=== PATIENT | male | born 1950 | race Caucasian/White ===

== ENCOUNTER 2017-06-07 08:29 | Outpatient (CLI) | payer OTHER ==
[2017-06-07] MEDS ORDERED: ISOVUE-370 76%-LOCM 1 ML ONE (13:35)
== END 2017-06-07 08:30 | disposition home or self-care (01) ==
LOC: BICCT 08:29
PROVIDERS: ATTEND Urology
DX: R31.0 Gross hematuria (principal); N40.0 Benign prostatic hyperplasia without lower urinary tract symptoms
CPT/HCPCS: 74178

== ENCOUNTER 2017-08-10 11:22 | Outpatient (CLI) | payer OTHER ==
[2017-08-10 12:17] LABS: Mean Corpuscular HGB CONC 33.7 g/dL (32.0-36.0); Mean Corpuscular Hemoglobin 30.9 pg (27.0-31.0); Mean Corpuscular Volume 91.7 fl (80.0-94.0); Mean Platelet Volume 6.7 fL (7.4-10.4); Platelet Count 291 thou/uL (130-400); RBC Distribution Width 11.9 % (11.5-14.5); Red Blood Cell (RBC) Count 4.86 mill/uL (4.70-6.10); White Blood Cell (WBC) Count 8.6 thou/uL (4.8-10.8)
[2017-08-10 12:30] LABS: Anion Gap 12 mmol/L (10-20); BUN (Urea Nitrogen) 15 mg/dL (8.4-25.7); Calc. Creatinine Clearance 0 mL/min (70-130); Calcium 9.3 mg/dL (7.8-10.44); Carbon Dioxide 23 mmol/L (23-31); Chloride 108 mmol/L (98-107); Estimated GFR-MDRD 88; Glucose 95 mg/dL (80-115); Potassium 4.1 mmol/L (3.5-5.1); Sodium 139 mmol/L (136-145)
--- NOTE | 2017-08-10 16:24 | EKG ---
Test Reason : Blood Pressure : / mmHG Vent. Rate : 066 BPM Atrial Rate : 066 BPM P-R Int : 172 ms QRS Dur : 086 ms QT Int : 396 ms P-R-T Axes : 033 068 042 degrees QTc Int : 415 ms Normal sinus rhythm Possible Left atrial enlargement Borderline ECG No previous ECGs available Confirmed by MICHELL STOVALL ([id number]) on 08/10/2017 4:24:02 PM Referred By: WILSON Confirmed By:MICHELL STOVALL
== END 2017-08-10 11:23 | disposition home or self-care (01) ==
LOC: LABBT 11:22
PROVIDERS: ATTEND Urology
DX: Z01.818 Encounter for other preprocedural examination (principal); N40.0 Benign prostatic hyperplasia without lower urinary tract symptoms; L91.8 Other hypertrophic disorders of the skin
CPT/HCPCS: 80048; 85027; 93005; 93010

== ENCOUNTER 2017-08-16 08:08 | Day surgery (SDC) | payer OTHER ==
[2017-08-10 11:13] VITALS: BMI 24.6
[2017-08-16] MEDS ORDERED: Dexamethasone 4 mg/ml Vial ONE (08:40)
[2017-08-16] MEDS ORDERED: Levofloxacin 500 mg/D5W 100 ml Premix Bag ONE (08:40)
[2017-08-16] MEDS ORDERED: Furosemide 20 MG/2 ML VIAL ONE ×2 (09:44→11:39)
[2017-08-16] MEDS ORDERED: Bacitracin Zinc Ointment 30 gm TUBE ONE (09:44)
[2017-08-16] MEDS ORDERED: B & O ONE (09:44)
[2017-08-16] MEDS ORDERED: Fentanyl 100 MCG/2 ML VIAL ONE ×2 (09:49→12:26)
[2017-08-16] MEDS ORDERED: Midazolam HCl 2 mg/2 ml Vial ONE (09:49)
[2017-08-16] MEDS ORDERED: Furosemide 40 MG/4 ML VIAL ONE (11:39)
--- NOTE | 2017-08-16 13:26 | OP ---
DATE OF PROCEDURE: 08/16/2017 PREOPERATIVE DIAGNOSES: Benign prostatic hypertrophy and skin tag. POSTOPERATIVE DIAGNOSES: Benign prostatic hypertrophy and skin tag. PROCEDURES: GreenLight laser vaporization of the prostate with enucleation of the middle lobe and skin tag removal. [id number] used SURGEON: Ramona Gonzalez M.D. ANESTHESIA: General with endotracheal tube. ESTIMATED BLOOD LOSS: Less than 50 mL. COMPLICATIONS: None. DRAIN: 20F silicone catheter FINDINGS: Adequate resection of prostate with good stream noted at the end; however, there was one right-sided vein that was oozing at low pressure and therefore traction was used at the end of the case, but a good stream had been noted when the scope had been removed. INDICATIONS: The patient is a 67-year-old male, who was following up for BPH and elected to undergo definitive surgical therapy. DESCRIPTION OF THE PROCEDURE: The patient was brought into the room by Anesthesia and laid on table in supine position. After receiving general anesthetic, his legs were placed in lithotomy position and his perineum was prepped and draped in sterile fashion. The patient was placed in lithotomy position and then the area of the skin tag was prepped with alcohol and lidocaine 5 mL 0.5% was used for numbing and then cutting on the cautery device was used to excise the skin tag and coagulation was used for hemostasis and then the perineum was prepped and draped in sterile fashion for the GreenLight laser procedure. Using a 22-German cystoscope and a 30-degree lens, the urethra was traversed. There was a small or a slight stricture noted that the camera passed into in the bulbar urethra and then the bladder was inspected. There was a small diverticulum noted on the right. The ureteral orifices were identified and preserved throughout the case and a power level of 80 was used at the bladder neck and the veru and a power level of 180 for the mid gland. Initially, the middle lobe was taken down and enucleated to the bladder floor and then the trigonal ridge was taken down to the floor as well. A total of [id number] joules were used. A grasper was needed to remove the larger chips. When the scope was removed, a good stream was noted. Scope was put back in. All chips were ensured to be out. When the bladder was decompressed/at a low volume, it was noted that there was bleeding at the right lateral portion. Attempts at vaporizing around this area and coagulation were not fully successful when the bladder was fully decompressed. So, at this point, I removed the scope, put a silicone 20-German catheter in and then blew the balloon up larger than normal and held pressure for approximately 5 minutes. Then, I reduced the balloon size and kept it on traction for approximately 15 minutes in the PACU area. Other than the venous bleeding, the patient tolerated the procedure well and there were no complications. He was awakened and transferred to the PACU in stable condition. OLEG
[2017-08-16] MEDS ORDERED: ePHEDrine/0.9% NaCl/PF SYRINGE 50 mg/10 ml ONE (16:12)
[2017-08-16] MEDS ORDERED: Lidocaine 1% PF 5 ML VIAL ONE (16:12)
[2017-08-16] MEDS ORDERED: Dexamethasone 20 MG/5 ML VIAL ONE (16:12)
[2017-08-16] MEDS ORDERED: Glycopyrrolate 0.2 MG/ML 5 ML SYRINGE ONE (16:12)
[2017-08-16] MEDS ORDERED: PROPOFOL 200 MG/20 ML VIAL ONE (16:12)
== END 2017-08-16 14:15 | disposition home or self-care (01) ==
LOC: SDC 08:08
PROVIDERS: ATTEND Urology
PROC: 0VB08ZZ Excision of Prostate, Via Natural or Artificial Opening Endoscopic (ICD-10-PCS; principal; 2017-08-16)
PROC: 0HB9XZZ Excision of Perineum Skin, External Approach (ICD-10-PCS; principal; 2017-08-16)
DX: N40.1 Benign prostatic hyperplasia with lower urinary tract symptoms (principal); R35.0 Frequency of micturition; R39.11 Hesitancy of micturition; R39.14 Feeling of incomplete bladder emptying; R39.12 Poor urinary stream; L91.8 Other hypertrophic disorders of the skin; E78.5 Hyperlipidemia, unspecified; H81.01 Meniere's disease, right ear; N52.9 Male erectile dysfunction, unspecified; Z79.82 Long term (current) use of aspirin; Z79.899 Other long term (current) drug therapy; Z91.040 Latex allergy status
CPT/HCPCS: 88305; 96374; J1100; J1940; J1956; J2001; J2250; J2704; J3010

== ENCOUNTER 2018-01-02 08:20 | Outpatient (CLI) | payer OTHER ==
[2018-01-02 09:09] LABS: #Basophils 0.1 thou/uL (0.0-0.2); #Eosinphils 0.1 thou/uL (0.0-0.7); #Lymphocytes 1.5 thou/uL (1.20-3.40); #Monocytes 0.3 thou/uL (0.11-0.59); #Neutrophils 3.7 thou/uL (1.40-6.50); %Basophils 1.1 % (0.0-1.0); %Eosinophils 1.6 % (0.0-10.0); %Lymphocytes 27.1 % (21.0-51.0); %Monocytes 4.6 % (0.0-10.0); %Neutrophils 65.6 % (42.0-75.0); Hemoglobin 14.7 g/dL (14.0-18.0); Mean Corpuscular HGB CONC 32.7 g/dL (32.0-36.0); Mean Corpuscular Hemoglobin 30.2 pg (27.0-31.0); Mean Corpuscular Volume 92.3 fL (78.0-98.0); Mean Platelet Volume 6.4 fL (7.4-10.4); Platelet Count 288 thou/uL (130-400); Red Blood Cell (RBC) Count 4.88 mill/uL (4.70-6.10); White Blood Cell (WBC) Count 5.6 thou/uL (4.8-10.8)
[2018-01-02 09:53] LABS: ALT (SGPT) 16 U/L (8-55); AST (SGOT) 21 U/L (5-34); Albumin 4.4 g/dL (3.4-4.8); Alkaline Phosphatase 82 U/L (40-150); Anion Gap 15 mmol/L (10-20); BUN (Urea Nitrogen) 16 mg/dL (8.4-25.7); Bilirubin, Total 0.7 mg/dL (0.2-1.2); Calc. Creatinine Clearance 0 mL/min (70-130); Calcium 9.4 mg/dL (7.8-10.44); Carbon Dioxide 23 mmol/L (23-31); Chloride 108 mmol/L (98-107); Estimated GFR-MDRD Greater than 90; Glucose 94 mg/dL (80-115); Protein, Total 6.4 g/dL (5.8-8.1); Sodium 142 mmol/L (136-145)
--- NOTE | 2018-01-08 14:24 | EKG ---
Test Reason : Blood Pressure : / mmHG Vent. Rate : 070 BPM Atrial Rate : 070 BPM P-R Int : 180 ms QRS Dur : 086 ms QT Int : 372 ms P-R-T Axes : 044 007 065 degrees QTc Int : 401 ms Sinus rhythm with occasional Premature ventricular complexes Possible Left atrial enlargement Nonspecific ST abnormality Abnormal ECG When compared with ECG of 10-AUG-2017 11:49, Premature ventricular complexes are now Present Questionable change in QRS axis Confirmed by DANIS VALENTE ([id number]) on 01/08/2018 2:24:36 PM Referred By: IRINA Confirmed By:DANIS VALENTE
== END 2018-01-02 08:21 | disposition home or self-care (01) ==
LOC: LABBT 08:20
PROVIDERS: ATTEND Surgery
DX: Z01.818 Encounter for other preprocedural examination (principal); K40.20 Bilateral inguinal hernia, without obstruction or gangrene, not specified as recurrent
CPT/HCPCS: 80053; 85025; 93005; 93010

== ENCOUNTER 2018-01-06 07:24 | Day surgery (SDC) | payer OTHER ==
[2018-01-02 08:29] VITALS: BMI 23.7
--- NOTE | 2018-01-06 07:06 | HP ---
CHIEF COMPLAINT: Bilateral inguinal hernia. HISTORY: This is a 67-year-old male who has bilateral groin bulges, left larger than the right, beco evelyn more and more difficult to reduce, occasional pain, no previous repair. Originally seen in October , but at that time he had an infected sebaceous cyst. We allowed that to be treated and resolve and he is now here for repair. 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 He has Meniere's disease with right hearing loss, hyperlipidemia and positional vertigo. PAST SURGICAL HISTORY: He had a vasectomy. He has had surgery on his right eye. He has had a catar act removed from there. He has had a colonoscopy in May. He had prostate and skin tag surgery. MEDICATIONS: Tamsulosin 0.4 b.i.d., finasteride 5 mg daily, sildenafil citrate 20 mg t.i.d., aspirin 325, Metamucil. ALLERGIES: No known drug allergies. FAMILY HISTORY: Father had coronary artery disease and Alzheimer's as well as COPD. Mother had davy st cancer. SOCIAL HISTORY: He is a physician. No tobacco, occasional alcohol. He is . PHYSICAL EXAMINATION: GENERAL: Well-developed, well-nourished male in no apparent distress. HEENT: Good hair growth. No alopecia. Pupils equal, round, and reactive. He does have the fixed r ight pupil. LUNGS: Clear. HEART: Regular rate and rhythm. ABDOMEN: Soft. There are no palpable masses. BACK: He has a healed wound on the lower back from the sebaceous cyst. EXTREMITIES: Good pulses. No pedal edema. GENITOURINARY: He has bilateral inguinal hernias, left greater than right. ASSESSMENT: Bilateral inguinal hernias. PLAN: Bilateral inguinal hernia repair. CONSENT: I have discussed the planned procedure as well as given him the option of open versus lapar oscopic. He prefers open. He understands the risks of bleeding, infection, injury to nerves, recurr ence of hernias. He gives informed consent.
[2018-01-06] MEDS ORDERED: Fentanyl 250 MCG/5 ML VIAL ONE (08:36)
[2018-01-06] MEDS ORDERED: CEFAZOLIN/Water 2 GM/20 ML SYRINGE ONE (08:40)
[2018-01-06] MEDS ORDERED: Bupivacaine/Epinephrine 0.25% 30 ML VIAL ONE (08:44)
[2018-01-06] MEDS ORDERED: Fentanyl 100 MCG/2 ML VIAL ONE (08:57)
[2018-01-06] MEDS ORDERED: HYDROmorphone 2 MG/ML VIAL ONE (08:57)
--- NOTE | 2018-01-06 12:37 | OP ---
PREOPERATIVE DIAGNOSIS: Bilateral inguinal hernia. SURGEON: Austin Adorno M.D. PROCEDURE PERFORMED: Bilateral inguinal hernia repair with mesh. INDICATIONS: A 67-year-old male with painful groin bulge on the left, was found to have another one on the right. FINDINGS: Bilateral direct inguinal hernias. PROCEDURE IN DETAIL: After informed consent was obtained, the patient was taken to the operating dixie m and given general endotracheal anesthesia, placed in the supine position. His groin was prepped an d draped in the usual fashion. Started on the right, local anesthesia infiltrated subcutaneously and deep. A transverse inguinal incision was performed. The subcu divided sharply. The fascia of the external oblique was incised in direction of its fibers through the external ring. Spermatic cord is olated with a Adams drain. Cremasteric fibers . No indirect component. The floor inspec armando. There was a direct inguinal hernia. This was circumscribed and reduced. Reduction was maintai tessy utilizing a PHS hernia system. Posterior layer was placed in the preperitoneal space laterally, tucked under the external oblique fascia medially, sutured the pubic tubercle. A notch was cut out f or the spermatic cord. The cord was placed anatomic. Hemostasis was assured. The external oblique fascia closed over the cord with a running 3-0 Vicryl. Delano's closed with interrupted 3-0 Vicryl a nd the skin closed with a running subcuticular 4-0 Rapide. I then moved to the left side. Again, a transverse skin incision. The subcu divided sharply. The fascia of the external oblique opened with in direction of its fibers. The spermatic cord isolated with a Adams drain. He had a large direc t inguinal hernia, this was circumscribed and reduced. Through the defect, the mesh was placed. The posterior layer placed in the preperitoneal space. Anterior was laid out, tucked under the external oblique fascia laterally, sutured to the pubic tubercle medially, the cord placed anatomic. The ext ernal oblique fascia closed with a running 3-0 Vicryl. Delano's with interrupted 3-0 Vicryl and skin closed with a running subcuticular 4-0 Rapide. Steri-Strips applied. Sterile bandage applied. The patient tolerated the procedure well and was transferred to recovery in good condition. Sponge and needle count verified correct x2.
== END 2018-01-06 12:40 | disposition home or self-care (01) ==
LOC: SDC 07:24
PROVIDERS: ATTEND Surgery
PROC: 0YUA0JZ Supplement Bilateral Inguinal Region with Synthetic Substitute, Open Approach (ICD-10-PCS; principal; 2018-01-06)
DX: K40.20 Bilateral inguinal hernia, without obstruction or gangrene, not specified as recurrent (principal); E78.5 Hyperlipidemia, unspecified; H81.01 Meniere's disease, right ear; Z79.82 Long term (current) use of aspirin; Z79.899 Other long term (current) drug therapy; Z91.040 Latex allergy status
CPT/HCPCS: C1781; J1170; J3010